=== PATIENT | female | born 1940 | race Caucasian/White ===

== ENCOUNTER 2017-02-20 21:14 | Emergency (ER) | payer MEDICARE, OTHER ==
[~2017-02-20] VITALS: Ht 167.6 cm; Wt 79.8 kg
[~2017-02-20 21:14] MED LIST: ACYCLOVIR400 MG PO; ALLOPURINOL100 MG PO; ALLOPURINOL300 MG PO; AMLODIPINE5 MG PO; ATORVASTATIN CA40 MG PO; BACTRIM DS1 TAB PO; BACTRIM1 TAB PO; CARVEDILOL3.125 MG PO; CIPROFLOXACN500 MG PO; CLOBETASOL0.051 EX; CLONIDINE0.1 MG PO; CYCLOSPORIN PO; CYCLOSPORINE25 MG PO; DARVOCET N-100100 - OR; DIABETA5 MG PO; DIOVAN320 MG OR; DOXYCYCL HYC100 M4 PO; ESTRACE VAG0.1 MG/GM VA; FAMVIR500 MG PO; FLUCONAZOLE100 MG PO; FUROSEMIDE40 MG PO; GENGRAF100 MG PO; HUMALOG KWI100 MG/ML SC; HUMALOG100 MG/ML; HYDROCHLOROT25 MG OR; KAYEXALATE15 GM/60 M PO; LANTUS SC; LANTUS100 MG/ML SC; LASIX 20 MG20 MG/TAB PO; MECLIZINE25 MG PO; MELOXICAM7.5 MG PO; METFORMIN1000 MG PO; METFORMIN500 MG PO; NORVASC2.5 MG PO; NOVOLOG100 IU/1 M; OMEPRAZOLE20 MG PO; PERCOCET 5/321 COMBO PO; PERCOCET 5/325M1 TAB PO; PREDNISONE10 MG PO; PREDNISONE20 MG PO; PROMACTA12.5 MG PO; ROBAXIN-750750 MG OR; SPS15 GM/60 M PO; VITAMIN B 12 PO; VITAMIN D2 PO; VITAMIN D3400 UNI2 PO; ZOFRAN ODT4 MG PO; [UNRECOGNIZED DRUG - CODE] PO
[2017-02-20 22:07] LABS: HEMOGLOBIN 8.8 g/dl (12.0-16.0); MEAN CELL VOLUME 110.7 fL CALC (80.0-100.0); MEAN CORPUSCULAR HGB 36.1 pG CALC (26.0-32.0); MEAN CORPUSCULAR HGB CONC 32.6 g/L CALC (32.0-36.0); RED BLOOD COUNT 2.44 mill/uL (4.20-5.60); RED CELL DISTRI WIDTH 13.7 % (11.5-15.5)
[2017-02-20 22:23] LABS: IMMATURE GRANULOCYTES 0.4 % (0.0-1.0); NEUT# 2.82 thou/uL (2.00-7.15)
[2017-02-20 22:29] LABS: ALBUMIN 3.8 g/dL (3.2-5.0); BILIRUBIN, TOTAL 0.3 mg/dL (0.0-1.4); CALCIUM 8.8 mg/dL (8.4-10.2); CREATININE 1.2 mg/dL (0.5-1.0); POTASSIUM 3.9 mmol/l (3.5-5.1)
[2017-02-20 22:43] LABS: PROTHROMBIN TIME 10.3 SECONDS (9.0-12.5)
[2017-02-20] MEDS ORDERED: LEVAQUIN500 MG PO (22:46)
[2017-02-21] MEDS ORDERED: LORTAB 10-325 M1 TAB PO (00:10)
[2017-02-21 00:47] VITALS: BP 146/49
== END 2017-02-21 00:48 | disposition home or self-care (01) ==
LOC: ED 21:14
PROVIDERS: Emergency Medicine
DX: L03.115 Cellulitis of right lower limb (principal); M54.5 Low back pain; M79.604 Pain in right leg; M79.671 Pain in right foot; R22.41 Localized swelling, mass and lump, right lower limb
CPT/HCPCS: J1956

== ENCOUNTER 2017-02-21 12:18 | Emergency (ER) | payer MEDICARE, OTHER ==
[~2017-02-21] VITALS: Ht 167.6 cm; Wt 76.0 kg
[~2017-02-21 12:18] MED LIST changes: +LEVAQUIN500 MG PO; +LORTAB 10-325 M1 TAB PO
[2017-02-21 13:27] LABS: HEMATOCRIT 26.9 % (37.0-47.0); IMMATURE GRANULOCYTES 0.5 % (0.0-1.0); MEAN CELL VOLUME 108.5 fL CALC (80.0-100.0); MEAN CORPUSCULAR HGB 36.3 pG CALC (26.0-32.0); MEAN CORPUSCULAR HGB CONC 33.5 g/L CALC (32.0-36.0); NEUT# 3.84 thou/uL (2.00-7.15); RED BLOOD COUNT 2.48 mill/uL (4.20-5.60); RED CELL DISTRI WIDTH 13.7 % (11.5-15.5)
[2017-02-21 14:01] LABS: ANION GAP 14 (6-22 (CALC)); BUN 25 mg/dL (8-23); BUN/CREATININE RATIO 26 (12-20 (CALC)); CALCIUM 8.8 mg/dL (8.4-10.2); CARBON DIOXIDE 25 mmol/l (22-30); CHLORIDE 109 mmol/l (95-108); GFR 54 ML/MIN (>=60 (CALC)); GFR FOR AFR.AMER. > 60 ML/MIN (>=60 (CALC)); GLUCOSE 101 mg/dL (82-115); POTASSIUM 3.8 mmol/l (3.5-5.1); SODIUM 144 mmol/l (137-146)
[2017-02-21 15:42] VITALS: BP 163/77
== END 2017-02-21 15:57 | disposition home or self-care (01) ==
LOC: ED 12:18
PROVIDERS: Family Medicine
DX: S05.12XA Contusion of eyeball and orbital tissues, left eye, initial encounter (principal); M79.642 Pain in left hand; M25.562 Pain in left knee; M25.521 Pain in right elbow; W01.118A Fall on same level from slipping, tripping and stumbling with subsequent striking against other sharp object, initial encounter; Y93.89 Activity, other specified; Y92.003 Bedroom of unspecified non-institutional (private) residence as the place of occurrence of the external cause

== ENCOUNTER 2017-11-27 19:46 | Emergency (ER) | payer MEDICARE, OTHER ==
[~2017-11-27] VITALS: Ht 167.6 cm; Wt 80.0 kg
[2017-11-27 20:26] VITALS: BP 163/66
== END 2017-11-27 20:56 | disposition home or self-care (01) ==
LOC: ED 19:46
DX: S09.90XA Unspecified injury of head, initial encounter (principal); R32 Unspecified urinary incontinence; R15.9 Full incontinence of feces; I11.9 Hypertensive heart disease without heart failure; E11.9 Type 2 diabetes mellitus without complications; W06.XXXA Fall from bed, initial encounter; Y92.003 Bedroom of unspecified non-institutional (private) residence as the place of occurrence of the external cause

== ENCOUNTER 2018-03-24 21:30 | Emergency (ER) | payer MEDICARE, OTHER ==
[~2018-03-24] VITALS: Ht 167.6 cm; Wt 80.0 kg
[2018-03-24 22:19] LABS: HEMOGLOBIN 8.8 g/dl (12.0-16.0); IMMATURE GRANULOCYTES 0.5 % (0.0-5.0); MEAN CELL VOLUME 108.9 fL CALC (80.0-100.0); MEAN CORPUSCULAR HGB 35.5 pG CALC (26.0-32.0); MEAN CORPUSCULAR HGB CONC 32.6 g/L CALC (32.0-36.0); NEUT# 1.63 thou/uL (2.00-7.15); RED BLOOD COUNT 2.48 mill/uL (4.20-5.60); RED CELL DISTRI WIDTH 13.6 % (11.5-15.5)
[2018-03-24 22:33] LABS: ALBUMIN 3.9 g/dL (3.2-5.0); ALKALINE PHOSPHATASE 86 u/l (38-126); ANION GAP 14 (6-22 (CALC)); BILIRUBIN, TOTAL 0.4 mg/dL (0.0-1.4); BUN 20 mg/dL (8-23); BUN/CREATININE RATIO 20 (12-20 (CALC)); CARBON DIOXIDE 26 mmol/l (22-30); CHLORIDE 107 mmol/l (95-108); GFR 53 ML/MIN (>=60 (CALC)); GFR FOR AFR.AMER. > 60 ML/MIN (>=60 (CALC)); POTASSIUM 3.5 mmol/l (3.5-5.1); SGOT/AST 18 u/l (9-36); SGPT/ALT 25 u/l (11-66); SODIUM 143 mmol/l (137-146); TOTAL PROTEIN 6.4 g/dL (6.3-8.2)
[2018-03-24 22:48] LABS: URINE BILIRUBIN - DIPSTICK NEGATIVE (NEGATIVE); URINE BLOOD DIPSTICK SMALL (NEGATIVE); URINE COLOR YELLOW; URINE GLUCOSE - DIPSTICK NEGATIVE (NEGATIVE); URINE KETONE NEGATIVE (NEGATIVE); URINE NITRITE - DIPSTICK NEGATIVE (Negative); URINE PROTEIN - DIPSTICK 30 mg/dL (NEG-TRACE); URINE SPECIFIC GRAVITY 1.025; URINE UROBILINOGEN - DIPSTICK 0.2 E.U./dL (0.2)
[2018-03-24 22:49] LABS: URINE CLARITY SL CLOUDY; URINE LEUK ESTERASE SMALL (NEGATIVE)
[2018-03-24 22:58] LABS: URINE BACTERIA FEW hpf; URINE MUCUS MODERATE hpf (NONE-FEW); URINE SQUAMOUS EPITHELIAL CELL MODERATE EPI/hpf (0-FEW)
[2018-03-24] MEDS ORDERED: CIPROFLOXACN500 MG PO (23:39)
[2018-03-24] MEDS ORDERED: ORPHENADRINE100 MG PO (23:39)
[2018-03-24] MEDS ORDERED: ULTRAM50 M1 PO (23:39)
[2018-03-25 00:01] VITALS: BP 176/86
== END 2018-03-25 00:02 | disposition home or self-care (01) ==
LOC: ED 21:30
PROVIDERS: Emergency Medicine
DX: M54.5 Low back pain (principal); N39.0 Urinary tract infection, site not specified; D61.9 Aplastic anemia, unspecified; E11.9 Type 2 diabetes mellitus without complications; I11.9 Hypertensive heart disease without heart failure

== ENCOUNTER 2018-06-16 14:14 | Emergency (ER) | payer MEDICARE, OTHER ==
[~2018-06-16] VITALS: Ht 167.6 cm; Wt 75.0 kg
[2018-06-16 14:14] VITALS: BP 230/107
[~2018-06-16 14:14] MED LIST changes: +ORPHENADRINE100 MG PO; +ULTRAM50 M1 PO
== END 2018-06-16 16:04 | disposition home or self-care (01) ==
LOC: ED 14:14
DX: S80.02XA Contusion of left knee, initial encounter (principal); M17.12 Unilateral primary osteoarthritis, left knee; E11.9 Type 2 diabetes mellitus without complications; I10 Essential (primary) hypertension; W18.39XA Other fall on same level, initial encounter; Y92.009 Unspecified place in unspecified non-institutional (private) residence as the place of occurrence of the external cause

== ENCOUNTER 2018-12-06 16:51 | Observation (INO) | payer MEDICARE, OTHER ==
[~2018-12-06] VITALS: Ht 167.6 cm; Wt 73.0 kg
--- NOTE | 2018-12-06 17:18 | NUR ---
PT TO ROOM VIA WC AWAKE AND ALERT WITH SISTER
--- NOTE | 2018-12-06 17:26 | NUR ---
PT STATES SHE HAD PAIN ACROSS MY CHEST YESTERDAY FOR ABOUT AN HOUR AND A HALF
--- NOTE | 2018-12-06 17:30 | NUR ---
IV INITIATED AND LABS COLLECTED. PT'S SISTER REPORTS PT STATED SHE WAS VERY WEAK. PT A&O X 3 AND MAEW. PT DENIES ANY PAIN AND REPORTS INTERMITTENT WEAKNESS. BILATERAL LS CLEAR. MINIMAL BILATERAL LOWER LEG EDEMA NOTED. PER SISTER THAT IS NORMAL. SISTER ALSO REPORTS PATIENT HAS STOPPED TAKING ALL MEDICAITONS. PT'S PCP IS AWARE. PT AND SISTER AWARE OF PLAN OF CARE AND WAIT TIME. CALL BRISENO WITHIN REACH.
[2018-12-06 17:57] LABS: HEMATOCRIT 31.1 % (37.0-47.0); HEMOGLOBIN 10.3 g/dl (12.0-16.0); IMMATURE GRANULOCYTES 0.5 % (0.0-5.0); MEAN CELL VOLUME 101.6 fL CALC (80.0-100.0); MEAN CORPUSCULAR HGB 33.7 pG CALC (26.0-32.0); MEAN CORPUSCULAR HGB CONC 33.1 g/L CALC (32.0-36.0); NEUT# 1.9 thou/uL (2.00-7.15); RED BLOOD COUNT 3.06 mill/uL (4.20-5.60); RED CELL DISTRI WIDTH 13.2 % (11.5-15.5)
[2018-12-06 18:04] LABS: ALBUMIN 4.4 g/dL (3.2-5.0); BILIRUBIN, TOTAL 0.8 mg/dL (0.0-1.4); CREATININE 1.1 mg/dL (0.5-1.0); POTASSIUM 3.9 mmol/l (3.5-5.1); TOTAL PROTEIN 7.4 g/dL (6.3-8.2)
--- NOTE | 2018-12-06 18:10 | NUR ---
PT AMBULATED TO BATHROOM WITH A SLOW GAIT WITH USE OF CANE. PT REPORTS LEGS FEEL WEAK. PT TAKEN THE REST OF THE WAY VIA WHEELCHAIR. UNABLE TO COLLECT URINE SAMPLE AT THIS TIME.
--- NOTE | 2018-12-06 18:35 | NUR ---
PT MEDICAITED PER ORDERED FOR HYPERTENSION.
--- NOTE | 2018-12-06 18:36 | NUR ---
PT MEDICATED WITH 15 MG PER MD VERBAL ORDER.
--- NOTE | 2018-12-06 18:47 | NUR ---
MD AT BEDSIDE TO DISCUSS RESULTS AND PLAN OF CARE.
--- NOTE | 2018-12-06 18:55 | NUR ---
RECEIVED REPORT FROM ANUPAM FOY.
--- NOTE | 2018-12-06 18:55 | NUR ---
PT REPORT TO ANUPAM ELKINS.
--- NOTE | 2018-12-06 19:12 | NUR ---
SBAR PRINTED TO FLOOR
--- NOTE | 2018-12-06 20:18 | NUR ---
ANUPAM MANZO TO TAKE REPORT AND WILL CALL IN A FEW MINUTES
--- NOTE | 2018-12-06 20:45 | NUR ---
REPORT GIVEN TO ANUPAM MANZO. PATIENT READIED FOR TRANSPORT TO FLOOR.
--- NOTE | 2018-12-06 21:10 | NUR ---
Admission Note Report Given to: SBAR SENT TO FLOOR Transported by: Wheelchair X Stretcher Transported with: X Nurse X Transporter X Patent IV O2 X Sculpture Instructor
[2018-12-06 21:20] VITALS: BP 153/90
--- NOTE | 2018-12-06 21:20 | NUR ---
PT ARRIVED TO THE FLOOR ACCOMP BY ED NURSE. PT AMUBULATED TO THE BED W/1X ASSISTANCE. SISTER IS W/PT. AIDE IS IN W/PT ORIENTED HER TO ROOM, CALL SYSTEM.BED LIGHTS AND TV. V/S BEING OBTAINED AT THIS TIME.
--- NOTE | 2018-12-06 22:50 | NUR ---
PT MEDICATED FOR [place] AND BP ORDERS PROVIDE. PT PROVIDED SANDWICH PER REQUEST. STATES SHE HASN'T EATEN SINCE NOON TODAY.
[2018-12-07 00:47] VITALS: BP 106/48
[2018-12-07 04:00] VITALS: BP 152/66
--- NOTE | 2018-12-07 04:25 | NUR ---
PT UP TO BSC AND ASSISTED BACK TO BED BY AIDE. AIDE CALLED JOB CHECKER IN TO LOOK AT PTS BACK WHERE SHE HAS BEEN SCRATCHING. VERY SMALL SCRATCH SPOTS FROM A REPORTEDLY "OLD RASH FROM TWO MONTHS AGO." LOTION APPLIED FOR DRYNESS/COMFORT.
[2018-12-07 05:20] LABS: URINE BILIRUBIN - DIPSTICK NEGATIVE (NEGATIVE); URINE BLOOD DIPSTICK NEGATIVE (NEGATIVE); URINE COLOR YELLOW; URINE GLUCOSE - DIPSTICK >=1000 mg/dL (NEGATIVE); URINE KETONE NEGATIVE (NEGATIVE); URINE LEUK ESTERASE NEGATIVE (NEGATIVE); URINE NITRITE - DIPSTICK NEGATIVE (Negative); URINE PH 5.5 (4.5-8.0); URINE PROTEIN - DIPSTICK 30 mg/dL (NEG-TRACE); URINE UROBILINOGEN - DIPSTICK 0.2 E.U./dL (0.2)
[2018-12-07 05:35] LABS: URINE MUCUS FEW hpf (NONE-FEW); URINE SQUAMOUS EPITHELIAL CELL FEW EPI/hpf (0-FEW)
[2018-12-07 06:30] LABS: CHOLESTEROL HDL RATIO 4.5 (<4.4 (CALC))
[2018-12-07 07:55] VITALS: BP 133/60
--- NOTE | 2018-12-07 07:55 | NUR ---
ASSESSMENT IS COMPLETED: IV SITE IS FREE FROM REDNESS OR EDEMA. HR IS REG, PULSES STRONG X4, ABD IS SOFT WITH ACTIVE BS. BREATH SOUNDS ARE CLEAR, TELE MONITOR IN PLACE. CONTINUE TO OBSERVE AND MONITOR.
--- NOTE | 2018-12-07 08:23 | NUR ---
SPOKE WITH SISTER OF PT. INQUIRED HOW HER NIGHT WAS IF SHE WAS MAD. PT CHEERFUL THIS AM. NO C/O PAIN OR DISTRESS,
[2018-12-07 11:00] VITALS: BP 148/58
--- NOTE | 2018-12-07 12:00 | NUR ---
PT HAS BEEN AMBULATING IN THE [place] , HAS BEEN REDIRECTED BACK TO HER ROOM. IV SITE IS FREE FROM REDNESS OR EDEMA.
--- NOTE | 2018-12-07 13:15 | NUR ---
IN TO VISIT WITH PT. AND FAMILY.
[2018-12-07] MEDS ORDERED: LANTUS100 UNIT/M SC (14:51)
[2018-12-07] MEDS ORDERED: COREG12.5 MG PO (14:53)
[2018-12-07] MEDS ORDERED: NAMENDA10 MG PO (14:54)
[2018-12-07] MEDS ORDERED: LASIX40 MG PO (14:54)
[2018-12-07] MEDS ORDERED: COZAAR100 MG PO (14:54)
[2018-12-07] MEDS ORDERED: CYMBALTA30 MG PO (14:54)
--- NOTE | 2018-12-07 15:18 | NUR ---
PT CAME UP TO THE DESK AND INQUIRED ABOUT NEEDING TO STAY HERE FOR THE NIGHT. EXPLAINED THIS WAS THE HOSPITAL AND WILL WATCH HER FOR TONIGHT.
[2018-12-07 16:00] VITALS: BP 139/48
--- NOTE | 2018-12-07 16:00 | NUR ---
PT CONTINUES TO AMBULATE IN THE [place] WAY WITH NO DISTRESS NOTED. WANTING TO GO HOME AND TAKE CARE OF HER FATHER. ALSO CALLED POLICE TO INFORM HER MOTHER THAT SHE WAS IN THE HOSPITAL.
--- NOTE | 2018-12-07 18:03 | NUR ---
PT HAS SPOKE WITH CASE MANAGEMENT AND AMBULATING IN THE [place] , WANTS TO VISIT WITH HER FATHER AND GET HIM HELP. ENCOURAGED PT TO STAY IN THE ROOM AND SIT TO RELAX AND WATCH TV. CONTINUE TO OBSERVE AND MONITOR,
--- NOTE | 2018-12-07 18:05 | NUR ---
CALLING HER SISTER. TO INFORM ABOUT PT WANDERING THE HALLS. NO INTEREST LATELY. CONTINUE TO OSBERVE AND MONITOR
[2018-12-07 19:00] VITALS: BP 133/81
--- NOTE | 2018-12-07 19:00 | NUR ---
PT CONTINUES TO WANDER. AND WANTS TO CALL HER SISTER TO TALK WITH HER FATHER . IV SITE IS FREE FROM REDNESS OR EDEMA.
--- NOTE | 2018-12-07 19:00 | NUR ---
RECEIVED REPORT FROM NURSE BUSTILLO, PATIENT CURRENTLY WANDERING IN HALLWAY, STEADY GAIT, WILL C OBTINUE TO MONITOR.
--- NOTE | 2018-12-07 20:00 | NUR ---
PATIENT CONTINUOUS TO WANDER IN HALWAY, PLEASANTLY CONFUSED ALERT TO SELF AND TIME ONLY, LOOKING FOR SISTER, WITH SALINE LOCK ON LEFT FOREARM PATENT G20, ON TELE SR 92, ASSISTED BACK IN BED, DENIES PAIN OR DISCOMFORT, WILL CONTINUE TO MONITOR
--- NOTE | 2018-12-07 21:33 | NUR ---
SPOKE TO DR HANLEY AND ORDERED TO D/C TELEMETRY
--- NOTE | 2018-12-08 00:31 | NUR ---
PATIENT CURRENTLY RESTING IN BED, EYES CLOSED NO DISCOMFORTS NOTED AT THIS TIME, EVEN UNLABORED BREATHING.
[2018-12-08 03:54] VITALS: BP 128/68
--- NOTE | 2018-12-08 05:25 | NUR ---
PATIENT RESTING IN BED, EYES CLOSED NO DISCOMFORTS NOTED AT THIS TIME, CALL LIGHT AT REACH.
--- NOTE | 2018-12-08 07:00 | NUR ---
PT LYING IN BED WATCHING TELEVISION. NO S/S OF DISTRESS. CALL LIGHT IN REACH. WILL CONTINUE TO MONITOR.
--- NOTE | 2018-12-08 07:40 | NUR ---
CULLEN,BUREAU CHIEF FROM IV FROM LEFT WRIST DISLODGED. PT REMOVED IT.
[2018-12-08 08:44] VITALS: BP 138/76
--- NOTE | 2018-12-08 08:44 | NUR ---
PT A/O X2. SPEECH IS CLEAR. RESP EVEN AND UNLABORED. LUNG SOUNDS CLEAR. BOWEL SOUNDS ACTIVE X4. STRONG RADIAL AND PEDAL PULSES. SKIN INTACT. PT DENIES ANY PAIN OR NEEDS. AMBULATING AROUND ROOM. POC DISCUSSED. SAFETY PRECAUTIONS IN PLACE. CALL LIGHT IN REACH. WILL CONTINUE TO MONITOR.
[2018-12-08 08:52] VITALS: BP 138/76
--- NOTE | 2018-12-08 12:34 | NUR ---
PT WALKING THE HALLS. VERY UPSET AND READY TO GO HOME. SISTER CALLED SO PT COULD TALK W/ HER. DR. HANLEY IN TO SEE PT. PT DENIES ANY FURTHER NEEDS AT THIS TIME. WILL CONTINUE TO MONITOR.
[2018-12-08] MEDS ORDERED: LANTUS100 UNIT/M SC (12:45)
[2018-12-08] MEDS ORDERED: LASIX40 MG PO (12:45)
--- NOTE | 2018-12-08 13:40 | NUR ---
D/C INSTRUCTIONS DISCUSSEDF W/ PT AND SISTER. BOTH STATE UNDERSTANDING. PT AWAITING WAIT STAFF TO BE TRANSFERRED DOWNSTAIRS.
--- NOTE | 2018-12-08 13:49 | NUR ---
Discharge instructions given. Patient verbalizes understanding of same. Discharged in stable condition via Wheelchair to Home with family. All belongings sent with pt.
== END 2018-12-08 13:46 ==
LOC: ED 16:51 → ED-I 18:41 → ED 18:55 → MS2 18:56
PROVIDERS: Emergency Medicine; ADMIT Internal Medicine; ATTEND Internal Medicine
DX: R07.89 Other chest pain (principal); I16.0 Hypertensive urgency; I12.9 Hypertensive chronic kidney disease with stage 1 through stage 4 chronic kidney disease, or unspecified chronic kidney disease; E11.22 Type 2 diabetes mellitus with diabetic chronic kidney disease; N18.3 Chronic kidney disease, stage 3 (moderate); E11.65 Type 2 diabetes mellitus with hyperglycemia; G30.9 Alzheimer's disease, unspecified; F02.80 Dementia in other diseases classified elsewhere, unspecified severity, without behavioral disturbance, psychotic disturbance, mood disturbance, and anxiety; I25.10 Atherosclerotic heart disease of native coronary artery without angina pectoris; D46.9 Myelodysplastic syndrome, unspecified; T38.3X6A Underdosing of insulin and oral hypoglycemic [antidiabetic] drugs, initial encounter; Z91.130 Patient's unintentional underdosing of medication regimen due to age-related debility; Z79.4 Long term (current) use of insulin